=== PATIENT | female | born 1950 | race Caucasian/White ===

== ENCOUNTER → 2020-02-18 09:10 | Outpatient (CLI) | payer MEDICARE, OTHER, SELFPAY ==
--- NOTE | ~2020-02-18 | MMUS_ITS ---
EXAMINATION: MM diagnostic silvia BI w belinda, US breast LT limited HISTORY: Palpable lump in the upper left breast TECHNIQUE: Craniocaudal, mediolateral, and mediolateral oblique 3-D tomosynthesis images of the [place] ts were performed and synthetic 2-D images were generated. CAD analysis was submitted and interpreted . High resolution limited left breast ultrasound was performed. COMPARISON: 05/22/2019, 05/03/2018, 06/04/2017, 03/15/2016 BREAST PARENCHYMAL COMPOSITION: The breasts are heterogeneously dense, which may obscure small masses . FINDINGS: MAMMOGRAPHIC FINDINGS: There is no evidence of suspicious mass, calcification, or architectural distortion in either breast to suggest malignancy. There has been no suspicious interval change. No mammographic correlate is id entified for the reported palpable lump of the left breast. ULTRASOUND: There is no evidence of focal abnormal solid or cystic lesion in the vicinity of the reported palpabl e abnormality of the left breast. IMPRESSION: 1. No specific mammographic or sonographic correlate is identified for the reported palpable abnormal ity of concern in the left breast. Further evaluation at this time should be based on clinical assess ment. Continued follow-up physical examination is recommended. No mammographic evidence of malignancy in the right breast. 2. Recommend routine screening mammography in one year. BI-RADS Category 1: Negative Reviewed, dictated and finalized at location A. IMPRESSION: 1. No specific mammographic or sonographic correlate is identified for the repo rted palpable abnormality of concern in the left breast. Further evaluation at this time should be based on clinical assessment. Continued follow-up physical examination is recommended. No mammographic evidence of malignancy in the right breast. 2. Recommend routine screening mammography in one year. BI-RADS Category 1: Negative
== END ==
PROVIDERS: PCP Internal Medicine; Visit Provider Internal Medicine
DX: N63.20 Unspecified lump in the left breast, unspecified quadrant (principal); R92.2 Inconclusive mammogram
CPT/HCPCS: 76642; 77062; 77066; G0279